=== PATIENT | female | born 1995 | race Caucasian/White ===

== ENCOUNTER 2017-08-27 00:46 | Emergency (ER) | payer BC, OTHER ==
[~2017-08-27] VITALS: Ht 175.3 cm; Wt 70.3 kg
--- NOTE | ~2017-08-27 | EKG ---
[address] [place] [address] ELECTROCARDIOGRAM REPORT Name: PERRI KHALIL Room [facility]: [facility] WESTDanyell#: [id number] Admission: 08/27/17 Attend Phys: Discharge: 08/27/17 Date of : [birth year] Report #: [id number] THIS REPORT FOR: //name// [facility] ED Test Date: 2017-08-27 Test Time: 01:13:31 Pat Name: PERRI KHALIL Department: Room: Gender: F Blind Aide: NICOLE FUENTES : 1995 Requested By: Roselia Benavides Order Number: [id number] MD: Husam Laws Measurements Intervals [place] Rate: 97 P: 80 PA: 141 QRS: 43 QRSD: 68 T: 19 QT: 341 QTc: 433 Interpretive Statements Sinus rhythm Early R-wave progression No previous ECG available for comparison Electronically Signed On 08-27-2017 8:41:47 [employer] by Husam Laws [email or web address] <ELECTRONICALLY SIGNED> By: Husam Laws MD, [facility] 08/27/17 [phone] Husam Laws MD, FACC /EPI
[~2017-08-27 00:46] MED LIST: PROPRANOLOL 1010 MG PO
[2017-08-27] MEDS ORDERED: WELLBUTRIN XL150 MG PO (01:01)
[2017-08-27] MEDS ORDERED: XANAX 0.5 MG0.5 MG (01:01)
[2017-08-27 01:21] LABS: ABSOLUTE NEUTROPHILS 2.4 thou/uL (1.4-8.2); BASOPHILS 0.7 % (0.0-2.0); EOSINOPHILS 1.4 % (0.0-3.0); HEMATOCRIT 39.4 % (37.0-47.0); HEMOGLOBIN 13.7 gm/dL (12.0-15.0); LYMPHOCYTES 40.1 % (24.0-44.0); MCH 31.3 pg (26.0-34.0); MCHC 34.8 g/dL (28.0-37.0); MCV 90.1 fL (80.0-100.0); PLATELET COUNT 210 thou/uL (150-400); POLYS 45.8 % (36.0-66.0); RBC 4.38 mil/uL (4.20-5.00); RDW 12.6 % (10.5-14.5); WBC 5.3 thou/uL (4.0-11.0)
[2017-08-27 01:25] LABS: CALCIUM 8.2 mg/dL (8.5-10.1); CREATININE 0.7 mg/dL (0.6-1.0); POTASSIUM 3.7 mmol/L (3.5-5.1)
[2017-08-27] MEDS ORDERED: TUSSIONEX PENN115 ML PO (02:37)
[2017-08-27] MEDS ORDERED: PROVENTIL HFA6.7 G1 INH (02:37)
== END 2017-08-27 03:13 | disposition home or self-care (01) ==
LOC: ER 00:46
PROVIDERS: Emergency Medicine
DX: R55 Syncope and collapse (principal); J06.9 Acute upper respiratory infection, unspecified